=== PATIENT | male | born 1985 | race Caucasian/White ===

== ENCOUNTER 2019-08-24 02:20 | Emergency (ER) | payer OTHER ==
[~2019-08-24] VITALS: Ht 182.9 cm; Wt 77.0 kg
[~2019-08-24 02:20] MED LIST: HYDR-3965 PO; PENI500T2 PO; PRED10TA PO
[2019-08-24 02:22] VITALS: BP 122/76
== END 2019-08-24 03:01 | disposition home or self-care (01) ==
LOC: ER 02:20
DX: H00.012 Hordeolum externum right lower eyelid (principal); Z79.899 Other long term (current) drug therapy
CPT/HCPCS: 99281

== ENCOUNTER 2020-01-11 08:46 | Emergency (ER) | payer MEDICAID ==
[~2020-01-11] VITALS: Ht 185.4 cm; Wt 81.8 kg
[2020-01-11 09:53] VITALS: BP 108/71
== END 2020-01-11 09:53 | disposition home or self-care (01) ==
LOC: ER 08:46
DX: S50.851A Superficial foreign body of right forearm, initial encounter (principal); Z79.2 Long term (current) use of antibiotics; Z79.899 Other long term (current) drug therapy; W45.8XXA Other foreign body or object entering through skin, initial encounter; Y93.89 Activity, other specified; Y92.89 Other specified places as the place of occurrence of the external cause; Y99.8 Other external cause status
CPT/HCPCS: 10120; 99284